=== PATIENT | male | born 1980 | race American Indian/Alaskan Native ===

== ENCOUNTER 2017-09-16 12:35 | Emergency (ER) | payer OTHER ==
[2017-09-16 12:45] VITALS: BMI 33.4
[2017-09-16 12:47] VITALS: BP 178/99; PULSE 83; RESP 18; TEMP 98.1; O2SAT 97
--- NOTE | 2017-09-16 12:58 | ED PDOC ---
Arrival/HPI - General Chief Complaint: ENT Problem Time Seen by Provider: 09/16/17 12:51 Historian: Patient - History of Present Illness Narrative History of Present Illness (Text): 09/16/17 12:55 37 year old male, with no significant past medical history, who presents to the ED complaining of Rt ear pain. 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 patient denies any fever, chills, chest pain, shortness of breath, abdominal pain, nausea, vomiting, diarrhea, or any other complaints. Symptom Onset: Gradual Symptom Course: Unchanged Activities at Onset: Light Context: Home Past Medical History - Provider Review Nursing Documentation Reviewed: Yes - Infectious Disease Hx of Infectious Diseases: None - Cardiac Hx Hypertension: Yes - Psychiatric Hx Substance Use: No Family/Social History - Physician Review Nursing Documentation Reviewed: Yes Family/Social History: Unknown Family HX Smoking Status: Light Smoker < 10 Cigarettes Daily Hx Alcohol Use: No Hx Substance Use: No Allergies/Home Meds Allergies/Adverse Reactions: Allergies No Known Allergies Allergy (Verified 09/16/17 12:45) Home Medications: Home Meds Medication Instructions Recorded Confirmed Enalapril Maleate [Vasotec] 1 tab PO DAILY 09/16/17 09/16/17 Review of Systems - Physician Review All systems were reviewed & negative as marked: Yes - Review of Systems Constitutional: Normal Eyes: Normal ENT: Other (rt ear pain) Respiratory: Normal. absent: SOB, Cough Cardiovascular: Normal. absent: Chest Pain Gastrointestinal: Normal. absent: Abdominal Pain, Diarrhea, Nausea, Vomiting Genitourinary Male: Normal. absent: Dysuria, Frequency Musculoskeletal: Normal. absent: Back Pain, Neck Pain Skin: Normal. absent: Rash Neurological: Normal. absent: Headache, Dizziness Endocrine: Normal Hemo/Lymphatic: Normal Psychiatric: Normal Physical Exam Vital Signs Reviewed: Yes Vital Signs Temp Pulse Resp BP Pulse Ox 09/16/17 12:46 98.1 F 83 18 178/99 H 97 Temperature: Afebrile Blood Pressure: Hypertensive Pulse: Regular Respiratory Rate: Normal Appearance: Positive for: Well-Appearing, Non-Toxic, Comfortable Pain Distress: None Mental Status: Positive for: Alert and Oriented X 3 - Systems Exam Head: Present: Atraumatic, Normocephalic Pupils: Present: PERRL Extroacular Muscles: Present: EOMI Conjunctiva: Present: Normal Ears: Present: Erythema. No: Normal Canal (swollen and enflamed canal, shows debris) Mouth: Present: Moist Mucous Membranes Neck: Present: Normal Range of Motion Respiratory/Chest: Present: Clear to Auscultation, Good Air Exchange. No: Respiratory Distress, Accessory Muscle Use Cardiovascular: Present: Regular Rate and Rhythm, Normal S1, S2. No: Murmurs Abdomen: No: Tenderness, Distention, Peritoneal Signs Back: Present: Normal Inspection Upper Extremity: Present: Normal Inspection. No: Cyanosis, Edema Lower Extremity: Present: Normal Inspection. No: Edema Neurological: Present: GCS=15, CN II-XII Intact, Speech Normal Skin: Present: Warm, Dry, Normal Color. No: Rashes Psychiatric: Present: Alert, Oriented x 3, Normal Insight, Normal Concentration Medical Decision Making ED Course and Treatment: 09/16/17 12:59 Impression: 37 year old male presents to the ED complaining of rt ear pain. Plan: Notes: Patient suggested to follow up with ENT if pain continues. - Scribe Statement The provider has reviewed the documentation as recorded by the Scribtung Krishna All medical record entries made by the Scribe were at my direction and personally dictated by me. I have reviewed the chart and agree that the record accurately reflects my personal performance of the history, physical exam, medical decision making, and the department course for this patient. I have also personally directed, reviewed, and agree with the discharge instructions and disposition. Disposition/Present on Arrival - Present on Arrival History of DVT/PE: No History of Uncontrolled Diabetes: No Urinary Catheter: No History of Decub. Ulcer: No History Surgical Site Infection Following: None - Disposition Diagnosis: Otitis externa, Otitis media Discharge Instructions (ExitCare): Ear Infections (Otitis Media) (DC), Outer Ear Infection (DC) Additional Instructions: Follow up with the Ear Nose and Throat Doctor, [ENT] Return to us if worse or problems. Prescriptions: Amoxicillin/Clavulanate [Augmentin 875 MG-125 MG] 1 tab PO BID #20 tab Ofloxacin Otic 0.3% [Floxin 5 ml] 3 drop OU BID #1 bottle Referrals: Elliott Bhatti DO [Staff Provider] - Follow up with primary Forms: [employer] (Latvian), WORK NOTE
== END 2017-09-16 13:31 | disposition home or self-care (01) ==
LOC: ED 12:35 → MERGE 12:35 → ED 13:31
DX: H66.90 Otitis media, unspecified, unspecified ear (principal); H60.90 Unspecified otitis externa, unspecified ear; I10 Essential (primary) hypertension; F17.210 Nicotine dependence, cigarettes, uncomplicated